=== PATIENT | male | born 1975 | race Hispanic/Latino ===

== ENCOUNTER → 2019-04-21 | Day surgery (SDC) | payer BC ==
[~2019-04-21] MED LIST: BACITRACIN 50,000 UNIT VIAL ONE; BUPIVACAINE HCL 0.5% INJ 30 ML VIAL INJ ONE; CEFAZOLIN SOD 1 GM/NS 50ML 50 ML IV ONE; DEXAMETHASONE SOD PHOS INJ 4 MG/ML VIAL ONE; FENTANYL CITRATE/PF 100MCG/2 ML INJ ONE; IBUPROFEN 800MG/ 250ML 250 ML IV ONE; LIDOCAINE HCL 2% LOCAL 20 ML VIAL ONE; LIDOCAINE HCL 2% LOCAL INJ 5 ML SDV VIAL INJ ONE; MEPERIDINE HCL INJ 25 MG/ML VIAL ONE; MIDAZOLAM HCL 2 MG/2 ML VIAL ONE; ONDANSETRON HCL INJ 2MG/ML 2ML 2 MG/ML VIAL ONE; PROPOFOL IV EMULSION 10 MG/ML 20 ML VIAL ONE; ROPIVACAINE 0.5% 5 MG/ML 30 ML SDV ONE; SEVOFLURANE INHAL SOLN 250 ML PEN BTL ONE
--- OUTSIDE RECORDS SUMMARY | 2019-04-21 05:10 | XMS REPORT ---
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 Allergies, Adverse Reactions, Alerts Allergy Name Allergy Type Status Severity Reaction(s) Onset Date Inactive Date Treating Clinician Comments No Known Allergies DA Active U 2019-04-06 00:00:00 Medications This patient has no known medications. Results Test Description Test Time Test Comments Text Results Atomic Results Result Comments - XR ANKLE 3 + V LT 2019-04-06 17:02:00 FAX: Pardeep Schwarz [phone] [place]: St: REG FAX: Kerwin Kaplan MD [phone] Name: NGUYENMIREYA GISELE [facility] : 1975 Age/S: 43/M [address] [place] [address] Unit #: [id number] Loc: [place] [address] Phys: Pardeep Schwarz Acct: [id number] Dis Date: Status: REG ER PHONE #: [phone] Exam Date: 04/06/2019 1659 FAX #: [phone] Reason: L sided medial malleolar and foot edema EXAMS: CPT CODE: [id number] XR ANKLE 3 + V LT [id number] Clinical Indication: L sided medial malleolar and foot edema; Comparison: None FINDINGS: The 3 views of the left ankle show a fracture of the medial malleolus of the left ankle with mild associated soft tissue swelling. The tibiotalar joint and talar dome are unremarkable. The subtalar joint is unremarkable. There is no ankle joint effusion. The ankle mortise is normal. The distal tibia-fibular alignment is unremarkable. There is no radiopaque foreign bodies. If there is further concern, recommend follow-up radiographs or MRI for complete assessment. IMPRESSION: Acute medial malleolus fracture of the left ankle. SL: AVELINAU-H at 1702 Reported and signed by: Husam Anderson M.D. CC: Pardeep PRADO; Kerwin Mackay MD Technologist: RT Alma(Eleuterio)R Trnscrd Date/Time/By: 04/06/2019 (2833) : By: AntonioLNV Orig Print D/T: S: 04/06/2019 (5310) PAGE 1 Signed Report
[2019-04-21 09:05] VITALS: BP 127/79
--- NOTE | 2019-04-21 11:29 | Operative Report ---
DATE OF PROCEDURE: 04/21/2019 SURGEON: Brown Feliz MD ROBOT TECHNICIAN: Josr Barrios PA-C. PREOPERATIVE DIAGNOSIS: Acute left Achilles tendon rupture. POSTOPERATIVE DIAGNOSIS: Acute left Achilles tendon rupture. PROCEDURE: Repair of left Achilles tendon. INDICATIONS: The patient is a 43-year-old gentleman, who ruptured his left Achilles tendon playing soccer. The findings and options have been discussed. Conservative versus surgical intervention has been explained. The risks and benefits of each option have been discussed. He states he understands and wishes to proceed with the surgical repair. PROCEDURE IN DETAIL: The patient was brought to the operating room and placed under general anesthetic. His left lower extremity was prepped and draped in a sterile manner. He received prophylactic antibiotics in the holding area. A preoperative time-out was performed. The extremity was exsanguinated and a proximal tourniquet was inflated to 300 mmHg. A posterior medial incision was made over the distal left lower extremity. The paratenon of the Achilles tendon was carefully incised. A frayed rupture of the Achilles tendon near the myotendinous junction was noted. The proximal and distal ends of the rupture were dissected out. Care was taken to avoid any injury to the sural nerve. The frayed portions of the tendon were debrided back to more substantial tissue. A #2 FiberWire stitch was woven into a banal weave of both the distal and proximal ends. These were sutured together with the foot held into plantar flexion. Adequate repair was accomplished. The proximal tendinous portion was limited as it was right near the myotendinous junction. The foot was put through gentle dorsiflexion and plantar flexion. There was no gapping at the repair site. The paratenon was carefully repaired with interrupted Vicryl stitches. The skin was closed with interrupted nylon stitches. A sterile bandage and a plantar flexed posterior splint were applied. There was no blood loss and all needle and sponge counts were correct. The patient was being extubated and transported to the recovery room at the time of dictation. Brown Feliz MD DR/JADEN /[id number]
== END | disposition home or self-care (01) ==
LOC: OR 05:00
PROVIDERS: ATTEND Specialist
DX: S86.022A Laceration of left Achilles tendon, initial encounter (principal); W18.39XA Other fall on same level, initial encounter; Y93.66 Activity, soccer; Y99.8 Other external cause status; F17.210 Nicotine dependence, cigarettes, uncomplicated; Z01.810 Encounter for preprocedural cardiovascular examination
CPT/HCPCS: 27650; 93005; J0690; J1100; J2001 ×2; J2175; J2250; J2405; J2704; J2795; J3010